=== PATIENT | female | born 1940 | race Caucasian/White ===

== ENCOUNTER 2020-11-08 01:10 | Inpatient (IN) | payer MEDICARE ==
[~2020-11-08] VITALS: Ht 160 cm; Wt 85.3 kg
[2020-11-08 01:27] LABS: HEMOGLOBIN 8.3 gm/dl (12.3-15.3); RED BLOOD COUNT 2.74 M/UL (4.00-5.10); WHITE BLOOD COUNT 17.2 K/UL (4.5-11.0)
[2020-11-08 01:48] LABS: BUN/CREATININE RATIO 29 (0-10)
[2020-11-08] MEDS ORDERED: AMLODIPINE BESY10 MG PO (10:06)
[2020-11-08] MEDS ORDERED: COZAAR 50MG TAB50 MG PO (10:06)
[2020-11-08] MEDS ORDERED: SINEQUAN CAP 1010 MG PO (10:07)
[2020-11-08] MEDS ORDERED: PROPRANOLOL HCL60 MG PO (10:07)
[2020-11-08] MEDS ORDERED: GEMFIBROZIL600 MG PO (10:07)
[2020-11-08] MEDS ORDERED: METFORMIN HCL1000 MG PO (10:07)
[2020-11-08] MEDS ORDERED: ZYLOPRIM 300 M300 MG PO (10:08)
[2020-11-08] MEDS ORDERED: TRAMADOL HCL50 MG PO (10:08)
[2020-11-08] MEDS ORDERED: JANUVIA100 MG PO (10:09)
[2020-11-08] MEDS ORDERED: MULTI FOR HER1 EACH PO (10:14)
[2020-11-09 08:09] LABS: HEMOGLOBIN 8.9 gm/dl (12.3-15.3); WHITE BLOOD COUNT 16.1 K/UL (4.5-11.0)
[2020-11-09 08:20] LABS: RED BLOOD COUNT 3.03 M/UL (4.00-5.10)
[2020-11-09 08:25] LABS: BUN/CREATININE RATIO 24 (0-10)
[2020-11-10 09:00] LABS: HEMOGLOBIN 8.8 gm/dl (12.3-15.3); RED BLOOD COUNT 2.92 M/UL (4.00-5.10); WHITE BLOOD COUNT 14.5 K/UL (4.5-11.0)
[2020-11-10 09:35] LABS: BUN/CREATININE RATIO 25 (0-10)
[2020-11-10] MEDS ORDERED: OMNICEF 300 MG300 MG PO (09:37)
[2020-11-10] MEDS ORDERED: HYDRALAZINE HCL10 MG PO (09:37)
[2020-11-10] MEDS ORDERED: ASPIRIN EC81 MG PO (09:37)
[2020-11-10] MEDS ORDERED: AZITHROMYCIN250 MG PO (09:37)
[2020-11-10] MEDS ORDERED: CLOPIDOGREL75 MG PO (09:37)
[2020-11-10] MEDS ORDERED: DEMADEX 5 MG TAB5 MG PO (09:37)
[2020-11-10] MEDS ORDERED: ATORVASTATIN CA20 MG PO (09:37)
== END 2020-11-10 12:39 | disposition home or self-care (01) | DRG 64 ==
LOC: ER1 01:10 → CDU 03:57 → M/S 19:11
PROVIDERS: Emergency Medicine; Physician Assistant Medical; ADMIT Internal Medicine
DX: I63.231 Cerebral infarction due to unspecified occlusion or stenosis of right carotid arteries (principal); J18.9 Pneumonia, unspecified organism; G81.91 Hemiplegia, unspecified affecting right dominant side; I50.32 Chronic diastolic (congestive) heart failure; E11.9 Type 2 diabetes mellitus without complications; Z20.822 Contact with and (suspected) exposure to COVID-19; D64.9 Anemia, unspecified; I11.0 Hypertensive heart disease with heart failure; G45.9 Transient cerebral ischemic attack, unspecified; Z96.652 Presence of left artificial knee joint; M10.9 Gout, unspecified; R04.0 Epistaxis; F39 Unspecified mood [affective] disorder; G89.29 Other chronic pain; Z90.49 Acquired absence of other specified parts of digestive tract; Z82.49 Family history of ischemic heart disease and other diseases of the circulatory system; Z79.82 Long term (current) use of aspirin; Z79.899 Other long term (current) drug therapy; Z79.84 Long term (current) use of oral hypoglycemic drugs
CPT/HCPCS: ECHO; 36415; 70450; 70496; 70498; 70551; 71045; 80048; 80053; 80061; 81001; 82550; 82553; 82728; 82962; 83036; 83540; 83550; 83690; 83735; 83874; 84100; 84439; 84443; 84484; 85025; 85027; 85610; 85730; 86140; 87040; 92526; 92610; 93005; 93306; 96365; 96366; 97116-GP-CQ; 97161; 97530-GP-CQ; 99285; J0360; J0456; J0696; J1940; J7030; Q9967; U0002

== ENCOUNTER 2020-12-31 16:05 | Inpatient (IN) | payer MEDICARE, MEDICAID ==
[~2020-12-31] VITALS: Ht 160 cm; Wt 74.8 kg
[~2020-12-31 16:05] MED LIST: AMLODIPINE BESY10 MG PO; ASPIRIN EC81 MG PO; ATORVASTATIN CA20 MG PO; AZITHROMYCIN250 MG PO; CLOPIDOGREL75 MG PO; COZAAR 50MG TAB50 MG PO; DEMADEX 5 MG TAB5 MG PO; GEMFIBROZIL600 MG PO; HYDRALAZINE HCL10 MG PO; JANUVIA100 MG PO; METFORMIN HCL1000 MG PO; MULTI FOR HER1 EACH PO; OMNICEF 300 MG300 MG PO; PROPRANOLOL HCL60 MG PO; SINEQUAN CAP 1010 MG PO; TRAMADOL HCL50 MG PO; ZYLOPRIM 300 M300 MG PO
[2020-12-31 19:28] LABS: HEMOGLOBIN 7.5 gm/dl (12.3-15.3); RED BLOOD COUNT 2.37 M/UL (4.00-5.10); WHITE BLOOD COUNT 15.4 K/UL (4.5-11.0)
[2020-12-31 19:52] LABS: BUN/CREATININE RATIO 29 (0-10)
[2021-01-01 02:46] LABS: HEMOGLOBIN 7.3 gm/dl (12.3-15.3); RED BLOOD COUNT 2.26 M/UL (4.00-5.10); WHITE BLOOD COUNT 13.1 K/UL (4.5-11.0)
[2021-01-01 03:16] LABS: BUN/CREATININE RATIO 30 (0-10)
[2021-01-02 07:53] LABS: HEMOGLOBIN 7.2 gm/dl (12.3-15.3); RED BLOOD COUNT 2.32 M/UL (4.00-5.10)
[2021-01-02 08:09] LABS: BUN/CREATININE RATIO 34 (0-10)
[2021-01-03 06:12] LABS: HBSAG SCREEN Negative (Negative); HEP A AB, IGM Negative (Negative); HEP B CORE AB, IGM Negative (Negative); HEP C VIRUS AB <0.1 (0.0-0.9)
[2021-01-03 07:32] LABS: BUN/CREATININE RATIO 37 (0-10)
[2021-01-03 07:34] LABS: RED BLOOD COUNT 2.06 M/UL (4.00-5.10)
[2021-01-03 07:35] LABS: HEMOGLOBIN 6.7 gm/dl (12.3-15.3)
[2021-01-04 07:02] LABS: RED BLOOD COUNT 1.98 M/UL (4.00-5.10); WHITE BLOOD COUNT 17.1 K/UL (4.5-11.0)
[2021-01-04 07:11] LABS: HEMOGLOBIN 6.5 gm/dl (12.3-15.3)
[2021-01-04 07:21] LABS: BUN/CREATININE RATIO 41 (0-10)
[2021-01-04] MEDS ORDERED: PREDNISONE 20 M20 MG PO (18:10)
[2021-01-04] MEDS ORDERED: MAGNESIUM400 M2 PO ×2 (18:10→18:38)
[2021-01-04] MEDS ORDERED: FUROSEMIDE40 MG PO (18:10)
[2021-01-04] MEDS ORDERED: HUMALOG 10100 UNITS/ SC (18:10)
[2021-01-04] MEDS ORDERED: ASPIRIN EC81 MG PO (18:10)
[2021-01-04] MEDS ORDERED: CARVEDILOL12.5 MG PO (18:10)
[2021-01-04] MEDS ORDERED: FOLIC ACID 1 MG1 MG PO (18:10)
[2021-01-04] MEDS ORDERED: ATORVASTATIN CA20 MG PO (18:10)
[2021-01-04] MEDS ORDERED: HYDROCHLOROTH12.5 MG PO (18:35)
[2021-01-04] MEDS ORDERED: POTASSIUM40 MEQ/15 PO (18:35)
--- NOTE | 2021-01-04 19:03 | NUR ---
Late Entry- 0800 Dr. Courtney notified of abnormal hgb...orders to notify Dr. Vásquez. Dr. Vásquez notified and orders rec. including orders to transfuse 1 unit of PRBC'S. 1435 BLOOD TRANSFUSION STARTED UNIT #[id number] 1750 BLOOD TRANSFUSION COMPLETE- NO SIGNS OF TRANFUSION REACTION.
[2021-01-04 20:45] LABS: HEMOGLOBIN 8.5 gm/dl (12.3-15.3)
--- NOTE | 2021-01-04 23:08 | NUR ---
[address] LEONARD OF BG 88, HGB 8.5, HCT 26.7. STATES HE IS AWARE PT NOT WANTING TO LEAVE TILL AM BUT BE BEST IF THEY COULD GO TONIGHT SEE IF THEY COULD GET RIDE. CASSIE NOTIFIED MILLI OF THIS WELL. SPOKE WITH PT AND DAUGHTER WHO IS AT BEDSIDE DAUGHTER DOES NOT WANT TO BE DRIVING ON [place] THIS LATE TONIGHT WITH HER MOTHER WHO JUST RECIEVED BLOOD A FEW HRS AGO, HER CANT COME TO GET THEM HE IS BATTLING THROAT CANCER. 2136 BUTCH WAS NOTIFIED OF THIS AGAIN.
[2021-01-05 07:07] LABS: HEMOGLOBIN 8.6 gm/dl (12.3-15.3)
[2021-01-05 07:21] LABS: RED BLOOD COUNT 2.69 M/UL (4.00-5.10)
== END 2021-01-05 18:38 | disposition home or self-care (01) | DRG 808 ==
LOC: MED SURG 4 18:11
PROVIDERS: Internal Medicine; Internal Medicine Cardiovascular Disease; ADMIT Internal Medicine
PROC: 30233N1 Transfusion of Nonautologous Red Blood Cells into Peripheral Vein, Percutaneous Approach (ICD-10-PCS; principal; 2021-01-04)
DX: D59.10 Autoimmune hemolytic anemia, unspecified (principal); I50.33 Acute on chronic diastolic (congestive) heart failure; M10.9 Gout, unspecified; E87.6 Hypokalemia; E11.65 Type 2 diabetes mellitus with hyperglycemia; I11.0 Hypertensive heart disease with heart failure; T49.6X5A Adverse effect of otorhinolaryngological drugs and preparations, initial encounter; I08.1 Rheumatic disorders of both mitral and tricuspid valves; I27.20 Pulmonary hypertension, unspecified; G89.29 Other chronic pain; E78.5 Hyperlipidemia, unspecified; E80.6 Other disorders of bilirubin metabolism; Z86.73 Personal history of transient ischemic attack (TIA), and cerebral infarction without residual deficits; Z79.01 Long term (current) use of anticoagulants; Z79.82 Long term (current) use of aspirin; Z79.4 Long term (current) use of insulin
CPT/HCPCS: 36415; 36430; 71045; 76700; 80048; 80053; 80061; 80074; 80076; 81001; 82248; 82550; 82553; 82607; 82728; 82746; 82962; 83010; 83036; 83540; 83550; 83615; 83735; 83880; 84100; 84132; 84439; 84443; 84484; 85014; 85018; 85025; 85027; 85045; 85610; 85730; 86850; 86880; 86900; 86901; 86920; 93005; 94640; 94664; 94760; 96374; 96375; 96376; G0378; G0379; J0360; J1940; J2930; J3475; J3480; J7040; P9016

== ENCOUNTER → 2021-01-17 | Outpatient (CLI) | payer MEDICARE ==
[~2021-01-17] MED LIST changes: +ATORVASTATIN CA40 MG PO; +CARVEDILOL12.5 MG PO; +DOXEPIN HCL10 MG PO; +FOLIC ACID 1 MG1 MG PO; +FUROSEMIDE40 MG PO; +HUMALOG 10100 UNITS/ SC; +HYDRALAZINE HCL25 MG PO; +HYDROCHLOROTH12.5 MG PO; +LOSARTAN POTASS50 MG PO; +MAGNESIUM400 M2 PO; +POTASSIUM40 MEQ/15 PO; +PREDNISONE 20 M20 MG PO; +TORSEMIDE20 MG PO
[2021-01-17 14:45] LABS: HEMOGLOBIN 6.5 gm/dl (12.3-15.3)
[2021-01-17 15:54] LABS: BUN/CREATININE RATIO 66 (0-10)
== END ==
LOC: LAB 13:49 → OPSV 01-18 08:00
PROVIDERS: Internal Medicine Hematology & Oncology
DX: D58.9 Hereditary hemolytic anemia, unspecified (principal)
CPT/HCPCS: 36415; 80053; 85014; 85018; 86850; 86900; 86901; 86920

== ENCOUNTER 2021-01-18 09:57 | Inpatient (IN) | payer MEDICARE ==
[~2021-01-18] VITALS: Ht 175.3 cm; Wt 113.4 kg
[~2021-01-18 09:57] MED LIST changes: -ATORVASTATIN CA40 MG PO; -DOXEPIN HCL10 MG PO; -HYDRALAZINE HCL25 MG PO; -LOSARTAN POTASS50 MG PO; -TORSEMIDE20 MG PO
[2021-01-18 10:55] LABS: RED BLOOD COUNT 1.35 M/UL (4.00-5.10); WHITE BLOOD COUNT 23.4 K/UL (4.5-11.0)
[2021-01-18 11:21] LABS: BUN/CREATININE RATIO 48 (0-10)
[2021-01-18] MEDS ORDERED: CARVEDILOL12.5 MG PO (11:26)
[2021-01-18] MEDS ORDERED: FUROSEMIDE40 MG PO (11:27)
[2021-01-18] MEDS ORDERED: HYDROCHLOROTH12.5 MG PO (11:27)
[2021-01-18] MEDS ORDERED: TRAMADOL HCL50 MG PO (11:27)
[2021-01-18] MEDS ORDERED: METFORMIN HCL1000 MG PO (11:27)
[2021-01-18] MEDS ORDERED: CLOPIDOGREL75 MG PO (11:28)
[2021-01-18] MEDS ORDERED: ZYLOPRIM 300 M300 MG PO (11:28)
[2021-01-18] MEDS ORDERED: ATORVASTATIN CA40 MG PO (11:28)
[2021-01-18] MEDS ORDERED: AMLODIPINE BESY10 MG PO (11:28)
[2021-01-18] MEDS ORDERED: PROPRANOLOL HCL60 MG PO (11:29)
[2021-01-18] MEDS ORDERED: DOXEPIN HCL10 MG PO (11:29)
[2021-01-18] MEDS ORDERED: LOSARTAN POTASS50 MG PO (11:29)
[2021-01-18] MEDS ORDERED: HYDRALAZINE HCL25 MG PO (11:30)
[2021-01-18] MEDS ORDERED: TORSEMIDE20 MG PO (11:30)
== END 2021-01-18 13:01 | disposition expired | DRG 309 ==
LOC: ER1 09:57 → CDU 10:55
PROVIDERS: Emergency Medicine; ADMIT Internal Medicine
PROC: 5A12012 Performance of Cardiac Output, Single, Manual (ICD-10-PCS; principal; 2021-01-18)
PROC: 0BH17EZ Insertion of Endotracheal Airway into Trachea, Via Natural or Artificial Opening (ICD-10-PCS; 2021-01-18)
PROC: 5A1935Z Respiratory Ventilation, Less than 24 Consecutive Hours (ICD-10-PCS; 2021-01-18)
PROC: 30233N1 Transfusion of Nonautologous Red Blood Cells into Peripheral Vein, Percutaneous Approach (ICD-10-PCS; 2021-01-18)
PROC: 3E033XZ Introduction of Vasopressor into Peripheral Vein, Percutaneous Approach (ICD-10-PCS; 2021-01-18)
DX: I49.01 Ventricular fibrillation (principal); Z66 Do not resuscitate; Z51.5 Encounter for palliative care; Z20.822 Contact with and (suspected) exposure to COVID-19; D59.10 Autoimmune hemolytic anemia, unspecified; I50.32 Chronic diastolic (congestive) heart failure; E87.2 Acidosis; I46.2 Cardiac arrest due to underlying cardiac condition; I47.2 Ventricular tachycardia; I27.20 Pulmonary hypertension, unspecified; M10.9 Gout, unspecified; I11.0 Hypertensive heart disease with heart failure; E78.5 Hyperlipidemia, unspecified; E87.6 Hypokalemia; I45.10 Unspecified right bundle-branch block; E11.9 Type 2 diabetes mellitus without complications; I45.4 Nonspecific intraventricular block; I48.91 Unspecified atrial fibrillation; Z86.73 Personal history of transient ischemic attack (TIA), and cerebral infarction without residual deficits; Z83.3 Family history of diabetes mellitus; Z82.49 Family history of ischemic heart disease and other diseases of the circulatory system; Z79.4 Long term (current) use of insulin; Z79.01 Long term (current) use of anticoagulants; Z79.82 Long term (current) use of aspirin; Z79.899 Other long term (current) drug therapy; Z90.49 Acquired absence of other specified parts of digestive tract
CPT/HCPCS: 31500; 36415; 36430; 36600; 71045; 80053; 82140; 82550; 82553; 82607; 82728; 82803; 82962; 83540; 83550; 83605; 83735; 83874; 83880; 84100; 84484; 85014; 85018; 85025; 85384; 85610; 85730; 86140; 86850; 86900; 86901; 86920; 87040; 92950; 93005; 94002; 99285; J0171; J0461; J2185; J2250; J3370; J7050; J7070; P9016; U0002